=== PATIENT | female | born 1945 | race Caucasian/White ===

== ENCOUNTER 2018-08-18 06:20 | Emergency (ER) | payer MEDICARE ==
[~2018-08-18] VITALS: Ht 162.6 cm; Wt 49.9 kg
--- NOTE | 2018-08-18 06:49 | Emergency Room Report ---
History of Present Illness General Chief Complaint: Chest Pain Source: Patient Present Illness HPI Patient present with complaints of chest pain midsternal heaviness Reports of the heaviness came on about 2 hours ago while sitting at rest Denies any vomiting or diarrhea denies any back or flank pain Denies any new medications Denies any change with sitting or laying or other position Denies any radiation or neuropathy denies any trauma Allergies: Coded Allergies: No Known Allergies (Unverified , 08/18/18) Patient History Past Medical History: see triage record Pertinent Family History: none Last Menstrual Period: EULALIA Reviewed Nursing Documentation: PMH: Agreed; PSxH: Agreed Nursing Documentation-PMH Past Medical History: No Stated History Review of Systems All Other Systems: negative except mentioned in HPI Physical Exam Vital Signs Date Time Temp Pulse Resp B/P (MAP) Pulse Ox O2 Delivery O2 Flow Rate FiO2 08/18/18 06:17 100 20 142/83 95 Room Air Sp02 EP Interpretation: reviewed, normal General Appearance: well appearing, no apparent distress Head: normocephalic, atraumatic Eyes: bilateral eye PERRL, bilateral eye EOMI ENT: hearing grossly normal, normal pharynx, TMs + canals normal, uvula midline Neck: full range of motion, supple, no meningismus, no bony tend Respiratory: lungs clear, normal breath sounds, no rhonchi, no respiratory distress, no retraction, no accessory muscle use Cardiovascular #1: normal peripheral pulses, regular rate, rhythm, no edema, no gallop, no JVD, no murmur Gastrointestinal: normal bowel sounds, non tender, soft, no mass, no organomegaly, non-distended, no guarding, no hernia, no pulsatile mass, no rebound Genitourinary: no CVA tenderness Musculoskeletal: normal inspection Neurologic: oriented x3, responsive, firer locomotive III-XII nml as tested, motor strength/ tone normal, sensory intact Psychiatric: mood/affect normal Skin: normal color, no rash, warm/dry, palpation normal Lymphatic: normal inspection, no adenopathy Medical Decision Making Diagnostic Impression: Primary Impression: ACS (acute coronary syndrome) ER Course Patient is a fairly complex patient with multiple differential to consideration including but not limited to cardiac cardiopulmonary and vascular emergencies Patient's potassium level is mildly elevated however patient does not show signs of kidney disease Was further hydrated and no further intervention was taken regarding that EKG shows a sinus rhythm x-ray is appropriate and patient is stable for further inpatient care Labs Test 08/18/18 06:50 White Blood Count 7.7 K/UL (4.8-10.8) Red Blood Count 4.18 M/UL (4.20-5.40) Hemoglobin 13.3 G/DL (12.0-16.0) Hematocrit 40.5 % (37.0-47.0) Mean Corpuscular Volume 97 FL (80-99) Mean Corpuscular Hemoglobin 31.7 PG (27.0-31.0) Mean Corpuscular Hemoglobin Concent 32.7 G/DL (32.0-36.0) Red Cell Distribution Width 13.5 % (11.6-14.8) Platelet Count 340 K/UL (150-450) Mean Platelet Volume 6.6 FL (6.5-10.1) Neutrophils (%) (Auto) 83.2 % (45.0-75.0) Lymphocytes (%) (Auto) 9.2 % (20.0-45.0) Monocytes (%) (Auto) 6.7 % (1.0-10.0) Eosinophils (%) (Auto) 0.2 % (0.0-3.0) Basophils (%) (Auto) 0.7 % (0.0-2.0) Sodium Level 136 MMOL/L (136-145) Potassium Level 5.6 MMOL/L (3.5-5.1) Chloride Level 99 MMOL/L (98-107) Carbon Dioxide Level 27 MMOL/L (21-32) Anion Gap 10 mmol/L (5-15) Blood Urea Nitrogen 30 mg/dL (7-18) Creatinine 0.9 MG/DL (0.55-1.30) Estimat Glomerular Filtration Rate mL/min (>60) Glucose Level 137 MG/DL (74-106) Calcium Level 9.4 MG/DL (8.5-10.1) Total Bilirubin 0.4 MG/DL (0.2-1.0) Aspartate Amino Transf (AST/SGOT) 20 U/L (15-37) Alanine Aminotransferase (ALT/SGPT) 26 U/L (12-78) Alkaline Phosphatase 130 U/L (46-116) Total Creatine Kinase 94 U/L (26-308) Creatine Kinase MB 2.4 NG/ML (0.0-3.6) Creatine Kinase MB Relative Index 2.5 Troponin I 0.000 ng/mL (0.000-0.056) Pro-B-Type Natriuretic Peptide 493 pg/mL (0-125) Total Protein 8.4 G/DL (6.4-8.2) Albumin 3.7 G/DL (3.4-5.0) Globulin 4.7 g/dL Albumin/Globulin Ratio 0.8 (1.0-2.7) EKG Diagnostic Results Rate: normal Rhythm: NSR ST Segments: no acute changes Rhythm Strip Diag. Results EP Interpretation: yes Rate: 80 Rhythm: NSR, no PVC's, no ectopy Chest X-Ray Diagnostic Results Chest X-Ray Diagnostic Results : Chest X-Ray Ordered: Yes # of Views/Limited/Complete: 1 View Indication: Chest Pain EP Interpretation: Yes Interpretation: no consolidation, no effusion, no pneumothorax Impression: No acute disease Electronically Signed by: Deisy Bowden DO Last Vital Signs Date Time Temp Pulse Resp B/P (MAP) Pulse Ox O2 Delivery O2 Flow Rate FiO2 08/18/18 06:17 100 20 142/83 95 Room Air Status: improved Disposition: ADMITTED INPATIENT Condition: Serious Scripts No Active Prescriptions or Reported Meds Deisy Bowden DO Aug 18, 2018 06:49
[2018-08-18 07:01] LABS: BASOPHILS % (AUTO) 0.7 % (0.0-2.0); EOSINOPHILS % (AUTO) 0.2 % (0.0-3.0); HEMATOCRIT 40.5 % (37.0-47.0); HEMOGLOBIN 13.3 G/DL (12.0-16.0); LYMPHOCYTES % (AUTO) 9.2 % (20.0-45.0); MEAN CORPUSCULAR VOLUME 97 FL (80-99); MONOCYTES % (AUTO) 6.7 % (1.0-10.0); NEUTROPHILS % (AUTO) 83.2 % (45.0-75.0); PLATELET COUNT 340 K/UL (150-450); RED BLOOD COUNT 4.18 M/UL (4.20-5.40); RED CELL DISTRIBUTION WIDTH 13.5 % (11.6-14.8); WHITE BLOOD COUNT 7.7 K/UL (4.8-10.8)
--- NOTE | 2018-08-18 07:08 | NUR ---
HAND-OFF: Report given to BA Michel.
[2018-08-18 07:12] VITALS: BP 144/70
--- NOTE | 2018-08-18 07:22 | NUR ---
ED Nurse Note: RECEIVED PT FROM BA ORTIZ. PT WAS BROUGHT IN BY RA [facility] FROM HOME DUE TO CP AND PRESSURE X2 HOUR. 0.8 NTG AND 162MG ASA RECEIVED EMPLOYMENT DIRECTOR. PT STATES THAT HER CP IS NOW DOWN TO 1/10.
[2018-08-18 07:28] LABS: ALANINE AMINOTRANSFERASE 26 U/L (12-78); ALBUMIN 3.7 G/DL (3.4-5.0); ALBUMIN/GLOBULIN RATIO 0.8 (1.0-2.7); ALKALINE PHOSPHATASE 130 U/L (46-116); ANION GAP 10 mmol/L (5-15); ASPARTATE AMINO TRANSFERASE 20 U/L (15-37); BILIRUBIN,TOTAL 0.4 MG/DL (0.2-1.0); BLOOD UREA NITROGEN 30 mg/dL (7-18); CALCIUM 9.4 MG/DL (8.5-10.1); CARBON DIOXIDE 27 MMOL/L (21-32); CHLORIDE 99 MMOL/L (98-107); CKMB 2.4 NG/ML (0.0-3.6); CREATINE KINASE 94 U/L (26-308); CREATININE 0.9 MG/DL (0.55-1.30); POTASSIUM 5.6 MMOL/L (3.5-5.1); SODIUM 136 MMOL/L (136-145)
--- NOTE | 2018-08-18 07:38 | Diagnostic Imaging Report ---
EXAM: XR Chest, 1 View CLINICAL HISTORY: Chest pain TECHNIQUE: Frontal view of the chest. COMPARISON: No relevant prior studies available. FINDINGS: Lungs: No focal consolidative process. Senescent changes. Elevated right hemidiaphragm. Pleural space: Unremarkable. No pneumothorax. Heart: Unremarkable. No cardiomegaly. Mediastinum: Unremarkable. Bones/joints: Unremarkable. IMPRESSION: No acute cardiopulmonary process.
[2018-08-18] MEDS ORDERED: Heparin 5000 units/ml inj SUBQ SCH (09:00)
[2018-08-18] MEDS ORDERED: Enalaprilat 2.5mg/2ml Inj IV PRN (09:00)
[2018-08-18] MEDS ORDERED: Aspirin Baby 81mg ORAL SCH (09:00)
[2018-08-18] MEDS ORDERED: Ketorolac 30mg Inj IV PRN (09:00)
[2018-08-18] MEDS ORDERED: dilTIAZem HCl 25mg/5ml Inj IV PRN (09:00)
[2018-08-18] MEDS ORDERED: Miralax 17gm pkt ORAL PRN (09:00)
[2018-08-18] MEDS ORDERED: Albuterol/Ipratropium 3ml neb HHN PRN (09:00)
[2018-08-18] MEDS ORDERED: Morphine Sulfate 2mg/ml Inj(IV/IM USE ONLY) IVP PRN (09:00)
--- NOTE | 2018-08-18 11:04 | NUR ---
ED Nurse Note: DELIA PT'S SON: [phone]
[2018-08-18 11:46] VITALS: BP 144/66
--- NOTE | 2018-08-18 12:05 | NUR ---
ED Nurse Note: Contacted [facility] for hospital bed.
[2018-08-18 12:38] VITALS: BP 144/66
--- NOTE | 2018-08-18 12:39 | NUR ---
ED Nurse Note: PT AND PT'S SON REQUEST TO LEAVE THE HOSPITAL. NOTIFIED DR. Aguila AND CHECO EDMONDS. PT MADE AWARE OF RISK FACTORS OF LEAVING AGAINT MEDICAL ADVISE AT THIS TIME, PT VERBALIZED UNDERSTANDING AND SIGNED AMA FORMED. IV AND ID WRIST BAND REMOVED. ALL BELONGINGS GIVEN TO PT. PT AMBULATED OUT OF ER WITH STEADY GAIT ASSISTANCE WITH PT'S SON.
[2018-08-18] MEDS ORDERED: Nitroglycerin Subl 0.4mg tab SL PRN (13:00)
--- NOTE | 2018-08-18 20:15 | History and Physical Report ---
DATE OF ADMISSION: 08/18/2018 TIME SEEN: 9 a.m. CONSULTANTS: 1. Kirit Springer M.D. 2. Courtney Burks M.D. CHIEF COMPLAINT: Chest pain and shortness of breath. BRIEF HISTORY: This 73-year-old female, who lives at home, this morning has some substernal chest pain and slight short of breath. No radiation. No dizziness. No loss of consciousness. The patient came to [facility], diagnosed as above. Chest pain is somewhat improved. No complaint. REVIEW OF SYSTEMS: Slight chest pain. Slight short of breath. No nausea, vomiting, or diarrhea. PAST MEDICAL HISTORY: Nothing. PAST SURGICAL HISTORY: None. MEDICATIONS: Include albuterol, aspirin, nitroglycerin, ketorolac, morphine, polyethylene glycol, Zofran, temazepam, enalapril, and diltiazem. ALLERGIES: Denies. SOCIAL HISTORY: Positive smoking. No alcohol. No intravenous drug abuse. FAMILY HISTORY: Noncontributory. PHYSICAL EXAMINATION: GENERAL: Calm in bed, oriented x3, no acute distress. VITAL SIGNS: Temperature 98 degrees, pulse 82, respirations 20, and blood pressure 144/70. CARDIOVASCULAR: Distant without murmur. LUNGS: Distant and clear. ABDOMEN: Bowel sounds positive. Nontender. Nondistended. EXTREMITIES: No signs of edema. NEUROLOGIC: The patient moves all extremities, slightly weak. LABORATORY AND DIAGNOSTIC DATA: Labs at this time show CBC is normal. BMP shows potassium 5.6, BUN and creatinine are 30, and glucose 137. Alkaline phosphatase 130. Troponin 0.00. BNP is 493. ASSESSMENT: 1. Chest pain. 2. Acute coronary syndrome. 3. Hyperkalemia. 4. Possible hypertension. PLAN: 1. Pain control. 2. Blood pressure control. 3. Dietary followup. 4. Nephrology followup. 5. O2 and pulmonary treatment as needed. 6. Troponin q. 8 h. x3. 7. EKG in a.m. David Young D.O. DR: BRITTANIE JOB#: [id number] CC:
--- NOTE | 2018-08-20 10:24 | Cardiology Report ---
APPROVED REPORT EXAM: Two-dimensional and M-mode echocardiogram with Doppler and color Doppler. INDICATION Left Ventricular Function M-Mode DIMENSIONS IVSd1.1 (0.7-1.1cm)Left Atrium (MM)2.9 (1.6-4.0cm) LVDd4.4 (3.5-5.6cm)Aortic Root2.5 (2.0-3.7cm) PWd0.7 (0.7-1.1cm)Aortic Cusp Exc.1.8 (1.5-2.0cm) LVDs2.5 (2.5-4.0cm) PWs1.4 cm Normal left ventricular chamber size, systolic function and wall motion. Left ventricular ejection fraction estimated to be 60 %. Borderline left ventricular hypertrophy. No evidence of pericardial effusion. All other cardiac chamber sizes are within normal limits. Focal aortic valve sclerosis with adequate cusp excursion. Thickened mitral valve leaflets with normal excursion. Mild mitral annulus and aortic root calcification. Normal pulmonic valve structure. Normal tricuspid valve structure. IVC is normal in size with physiological collapse. A color flow and spectral Doppler study was performed and revealed: Mild aortic insufficiency. No mitral regurgitation. Mitral diastolic velocities suggest mild left ventricular diastolic dysfunction (Grade I). Mild tricuspid regurgitation. Tricuspid systolic velocities suggests peak right ventricular systolic pressure of 41 mmHg, consistent with mild pulmonary hypertension. Trace pulmonic regurgitation present.
--- NOTE | 2018-08-22 01:29 | Cardiology Report ---
APPROVED REPORT EKG Measurement Heart [id number] Normal sinus rhythm Normal ECG
== END 2018-08-18 12:39 | disposition other institution (70) ==
LOC: EDBD 06:20 → EMR 08:10
DX: I24.9 Acute ischemic heart disease, unspecified (principal); E87.5 Hyperkalemia; F17.200 Nicotine dependence, unspecified, uncomplicated; Z79.82 Long term (current) use of aspirin; Z79.899 Other long term (current) drug therapy
CPT/HCPCS: 36415; 71045; 80053; 82550; 82553; 83880; 84484; 85025; 93005; 93306; 99284